=== PATIENT | male | born 1970 | race Caucasian/White ===

== ENCOUNTER 2016-12-17 04:42 | Observation (INO) | payer MEDICARE ==
[~2016-12-17] VITALS: Ht 175.3 cm; Wt 107.2 kg
[2016-12-17 05:03] LABS: RED BLOOD COUNT 5.21 M/UL (4.20-5.50); WHITE BLOOD COUNT 26.9 K/UL (4.5-11.0)
[2016-12-17 05:23] LABS: BUN/CREATININE RATIO 5 (0-10)
[2016-12-17] MEDS ORDERED: LISINOPRIL-HCT1 EAC1 PO (20:20)
[2016-12-18 05:14] LABS: BUN/CREATININE RATIO 12 (0-10)
[2016-12-18 05:19] LABS: HEMOGLOBIN 13.5 gm/dl (14.0-17.5); RED BLOOD COUNT 4.43 M/UL (4.20-5.50)
[2016-12-19 04:10] LABS: RED BLOOD COUNT 4.18 M/UL (4.20-5.50)
[2016-12-19 04:12] LABS: WHITE BLOOD COUNT 11.9 K/UL (4.5-11.0)
[2016-12-19 04:22] LABS: BUN/CREATININE RATIO 10 (0-10)
== END 2016-12-19 18:30 | disposition other institution (70) ==
LOC: ER1 04:42 → ZEROF 14:45 → PROG CARE 14:45
PROVIDERS: Family Medicine; ADMIT Internal Medicine
DX: F10.10 Alcohol abuse, uncomplicated (principal); R11.2 Nausea with vomiting, unspecified; R19.7 Diarrhea, unspecified; E87.1 Hypo-osmolality and hyponatremia; E87.6 Hypokalemia; R74.0 Nonspecific elevation of levels of transaminase and lactic acid dehydrogenase [LDH]; D72.829 Elevated white blood cell count, unspecified; R00.0 Tachycardia, unspecified; I10 Essential (primary) hypertension; Z79.899 Other long term (current) drug therapy
CPT/HCPCS: 36415; 71010; 80048; 80053; 80307; 81001; 83036; 83735; 84443; 84484; 85025; 85027; 85610; 93005; G0378; G0480; J1650; J2060; J2405; J3360; J3411; J3475; J7030